=== PATIENT | male | born 1935 | race Caucasian/White ===

== ENCOUNTER 2016-11-08 04:24 | Inpatient (IN) | payer OTHER ==
[~2016-11-08] VITALS: Ht 185.4 cm; Wt 93.4 kg
[2016-11-08] VITALS (8 sets, daily range): BP systolic 90–116; BP diastolic 51–76
[~2016-11-08 04:24] MED LIST: ALDACTONE25 MG PO; CARVEDILOL3.125 M1 PO; CARVEDILOL6.25 M1 PO; CLEOCIN HCL300 MG PO; CLINDAMYCIN HC300 MG PO; COL100 PO; COREG3.125 MG PO; COU1; COU2.5 PO; FLO4 PO; FUROSEMIDE40 MG PO; GLU500 PO; KEF500 PO; LAC PO; LASIX40 MG PO; LEVAQUIN LEVA-750 M1 PO; LEVAQUIN750 MG PO; LEVOFLOXACIN750 M1 PO; LISINOPRIL10 MG PO; OSC PO; XARELTO10 M1 PO; XARELTO20 M1 PO; ZESTRIL5 MG PO
[2016-11-08 05:01] LABS: BASOPHIL % 0.6 % (0-2); PLATELET COUNT 293 x10^3mcL (130-400)
[2016-11-08 05:14] LABS: CALCIUM 8.9 mg/dL (8.5-10.1); CARBON DIOXIDE 34.7 mmol/L (21-32); CHLORIDE SERUM 102 mmol/L (98-107); CREATININE SERUM 0.9 mg/dL (0.7-1.3); GLUCOSE SERUM 139 mg/dL (74-106); SODIUM SERUM 139 mmol/L (136-145)
[2016-11-08 05:20] LABS: ALKALINE PHOSPHATASE 249 U/L (46-116); ALT/SGPT 15 U/L (16-63); AST/SGOT 20 U/L (15-37); BILIRUBIN TOTAL 0.7 mg/dL (0.20-1.00); LIPASE 251 IU/L (73-393); TOTAL PROTEIN, SERUM 7.6 g/dL (6.4-8.2)
[2016-11-08 05:23] LABS: ALBUMIN 2.8 g/dL (3.4-5.0)
[2016-11-08 05:30] LABS: FREE T4 0.98 ng/dL (0.76-1.46)
[2016-11-08 10:16] LABS: T3 TOTAL 1.22 ng/mL
[2016-11-08 10:29] LABS: CHOLESTEROL/HDL RATIO 3.7
[2016-11-08 10:37] LABS: FREE T4 1.09 ng/dL (0.76-1.46); FREE THYROXINE INDEX 2.9 ug/dL (1.4-4.5); T4(THYROXINE) 8.1 ug/dL (4.7-13.3)
[2016-11-09 05:04] VITALS: BP 97/56
[2016-11-09 07:25] LABS: PLATELET COUNT 219 x10^3mcL (130-400)
[2016-11-09 07:32] LABS: BASOPHIL % 0 % (0-2); RED CELL DISTRIBUTION WIDTH 20.1 % (11.5-14.5)
[2016-11-09 07:34] LABS: rbc morphology (normal/abnorm) ABNORMAL (NORMAL)
[2016-11-09 07:36] LABS: CALCIUM 8.7 mg/dL (8.5-10.1); CARBON DIOXIDE 30.2 mmol/L (21-32); CHLORIDE SERUM 101 mmol/L (98-107); CREATININE SERUM 1.3 mg/dL (0.7-1.3); GLUCOSE SERUM 161 mg/dL (74-106); MAGNESIUM 1.9 mg/dL (1.8-2.4); PHOSPHOROUS 3.9 mg/dL (2.5-4.9); POTASSIUM SERUM 4.7 mmol/L (3.5-5.1); SODIUM SERUM 137 mmol/L (136-145)
[2016-11-09 08:57] VITALS: BP 94/46
[2016-11-09 10:00] LABS: UA SPECIFIC GRAVITY >=1.030 (1.005-1.035); microscopic required? YES; urine erythrocyte NEGATIVE (NEGATIVE)
[2016-11-09 10:06] LABS: AMPHETAMINE QUAL UR NONE DETECTED (NEG <=1000)
[2016-11-09 17:36] VITALS: BP 94/53
[2016-11-09 17:51] VITALS: Ht 185.4 cm; Wt 93.4 kg
[2016-11-09 22:10] VITALS: BP 108/48
[2016-11-10 06:20] VITALS: BP 116/50
[2016-11-10 06:27] LABS: CALCIUM 8.9 mg/dL (8.5-10.1); CARBON DIOXIDE 28.1 mmol/L (21-32); CHLORIDE SERUM 98 mmol/L (98-107); CREATININE SERUM 1.2 mg/dL (0.7-1.3); GLUCOSE SERUM 116 mg/dL (74-106); MAGNESIUM 1.9 mg/dL (1.8-2.4); PHOSPHOROUS 3.1 mg/dL (2.5-4.9); SODIUM SERUM 134 mmol/L (136-145)
[2016-11-10 06:29] LABS: PLATELET COUNT 218 x10^3mcL (130-400)
[2016-11-10 06:50] LABS: RED CELL DISTRIBUTION WIDTH 19.9 % (11.5-14.5)
[2016-11-10 06:51] LABS: BASOPHIL % 0 % (0-2); rbc morphology (normal/abnorm) ABNORMAL (NORMAL)
[2016-11-10 10:36] VITALS: BP 106/68
[2016-11-10] MEDS ORDERED: DIG125 PO (11:10)
[2016-11-10] MEDS ORDERED: COR6 PO (11:11)
[2016-11-10] MEDS ORDERED: DILTIAZEM30 M1 PO (11:11)
[2016-11-10] MEDS ORDERED: L40 PO (11:12)
[2016-11-10] MEDS ORDERED: BACO TOP (11:14)
[2016-11-10] MEDS ORDERED: HIBICLENS118 ML TOP (11:14)
[2016-11-10] MEDS ORDERED: CLINDAMYCIN HC300 MG PO (11:45)
[2016-11-10] MEDS ORDERED: LEVAQUIN750 MG PO (11:45)
[2016-11-10] MEDS ORDERED: LAC PO (11:46)
[2016-11-10 13:44] VITALS: BP 119/80
[2016-11-10 14:52] VITALS: BP 119/80
[2016-11-10 15:13] VITALS: BP 120/80
== END 2016-11-10 15:32 | disposition home or self-care (01) | DRG 177 ==
LOC: ED 04:24 → DU 05:36
PROVIDERS: Emergency Medicine; ADMIT Family Medicine
DX: J69.0 Pneumonitis due to inhalation of food and vomit (principal); J96.01 Acute respiratory failure with hypoxia; I50.43 Acute on chronic combined systolic (congestive) and diastolic (congestive) heart failure; N17.0 Acute kidney failure with tubular necrosis; E43 Unspecified severe protein-calorie malnutrition; L97.819 Non-pressure chronic ulcer of other part of right lower leg with unspecified severity; L97.829 Non-pressure chronic ulcer of other part of left lower leg with unspecified severity; E11.65 Type 2 diabetes mellitus with hyperglycemia; E11.51 Type 2 diabetes mellitus with diabetic peripheral angiopathy without gangrene; E11.59 Type 2 diabetes mellitus with other circulatory complications; I48.2 Chronic atrial fibrillation; I83.018 Varicose veins of right lower extremity with ulcer other part of lower leg; I83.028 Varicose veins of left lower extremity with ulcer other part of lower leg; N40.0 Benign prostatic hyperplasia without lower urinary tract symptoms; Z79.01 Long term (current) use of anticoagulants; Z99.81 Dependence on supplemental oxygen; Z79.84 Long term (current) use of oral hypoglycemic drugs
CPT/HCPCS: 36600; 82962; 83880; 84439; 94150; J0456; J0696; J1160; J2543; J2930; J3490; J7050; J7613; J7620; J7644; Q0092

== ENCOUNTER 2016-11-15 15:14 | Observation (INO) | payer OTHER ==
[~2016-11-15] VITALS: Ht 185.4 cm; Wt 96.2 kg
[~2016-11-15 15:14] MED LIST changes: +BACO TOP; +COR6 PO; +DIG125 PO; +DILTIAZEM30 M1 PO; +HIBICLENS118 ML TOP; +L40 PO
[2016-11-15 15:50] LABS: BASOPHIL % 0.1 % (0-2); PLATELET COUNT 254 x10^3mcL (130-400)
[2016-11-15 15:55] LABS: CALCIUM 8.9 mg/dL (8.5-10.1); CHLORIDE SERUM 99 mmol/L (98-107); CREATININE SERUM 0.8 mg/dL (0.7-1.3); GLUCOSE SERUM 107 mg/dL (74-106); POTASSIUM SERUM 4.5 mmol/L (3.5-5.1); SODIUM SERUM 139 mmol/L (136-145)
[2016-11-15 15:59] LABS: RED CELL DISTRIBUTION WIDTH 19.6 % (11.5-14.5)
[2016-11-15 16:01] LABS: ALKALINE PHOSPHATASE 172 U/L (46-116); ALT/SGPT 16 U/L (16-63); AST/SGOT 20 U/L (15-37); BILIRUBIN TOTAL 0.63 mg/dL (0.20-1.00); TOTAL PROTEIN, SERUM 7.1 g/dL (6.4-8.2)
[2016-11-15 16:03] LABS: ALBUMIN 2.5 g/dL (3.4-5.0)
[2016-11-15 17:11] LABS: microscopic required? NO
[2016-11-15 17:18] LABS: UA SPECIFIC GRAVITY 1.025 (1.005-1.035); urine erythrocyte NEGATIVE (NEGATIVE)
[2016-11-15 17:28] LABS: AMPHETAMINE QUAL UR NONE DETECTED (NEG <=1000)
[2016-11-15 17:40] LABS: MAGNESIUM 1.8 mg/dL (1.8-2.4); PHOSPHOROUS 2.5 mg/dL (2.5-4.9)
[2016-11-15 17:47] VITALS: BP 114/58
[2016-11-15 17:54] VITALS: Ht 185.4 cm; Wt 96.2 kg
[2016-11-15 17:55] VITALS: BP 114/58
[2016-11-15 22:20] VITALS: BP 103/50
[2016-11-16 06:12] VITALS: BP 103/50
[2016-11-16 06:37] LABS: CALCIUM 8.6 mg/dL (8.5-10.1); CARBON DIOXIDE 33.4 mmol/L (21-32); CHLORIDE SERUM 99 mmol/L (98-107); GLUCOSE SERUM 162 mg/dL (74-106); MAGNESIUM 1.9 mg/dL (1.8-2.4); PHOSPHOROUS 4.4 mg/dL (2.5-4.9); POTASSIUM SERUM 4.8 mmol/L (3.5-5.1); SODIUM SERUM 137 mmol/L (136-145)
[2016-11-16 07:48] LABS: BASOPHIL % 0 % (0-2); PLATELET COUNT 210 x10^3mcL (130-400); RED CELL DISTRIBUTION WIDTH 19.1 % (11.5-14.5)
[2016-11-16 14:00] VITALS: BP 94/58
[2016-11-16 18:20] VITALS: BP 98/57
[2016-11-16 21:39] VITALS: BP 102/48
[2016-11-16 22:54] VITALS: BP 100/57
[2016-11-17 06:23] LABS: BASOPHIL % 0.2 % (0-2); PLATELET COUNT 228 x10^3mcL (130-400)
[2016-11-17 06:46] LABS: CALCIUM 8.7 mg/dL (8.5-10.1); CARBON DIOXIDE 33.5 mmol/L (21-32); CHLORIDE SERUM 96 mmol/L (98-107); CREATININE SERUM 1.2 mg/dL (0.7-1.3); GLUCOSE SERUM 164 mg/dL (74-106); MAGNESIUM 1.9 mg/dL (1.8-2.4); PHOSPHOROUS 4.1 mg/dL (2.5-4.9); POTASSIUM SERUM 4.4 mmol/L (3.5-5.1); SODIUM SERUM 132 mmol/L (136-145)
[2016-11-17 06:49] LABS: rbc morphology (normal/abnorm) ABNORMAL (NORMAL)
[2016-11-17 06:53] VITALS: BP 105/55
[2016-11-17 10:57] VITALS: BP 99/58
[2016-11-17 13:04] VITALS: BP 102/62
[2016-11-17] MEDS ORDERED: BACTRIM1 TAB PO (18:32)
[2016-11-17 18:33] VITALS: BP 118/67
[2016-11-17] MEDS ORDERED: LEV500PM IV (18:34)
[2016-11-17] MEDS ORDERED: CLINDAMYCI600 MG/50 IV (18:35)
[2016-11-17] MEDS ORDERED: LAC PO (18:36)
[2016-11-17 18:48] VITALS: BP 118/67
[2016-11-17] MEDS ORDERED: MEDDP PO (19:08)
[2016-11-17] MEDS ORDERED: ATORVASTATIN CA20 M1 PO (19:21)
[2016-11-17] MEDS ORDERED: GOOD SENSE ASPI81 M3 PO (19:21)
== END 2016-11-17 20:42 | DRG 291 ==
LOC: ED 15:14 → DU 16:28 → MU 16:28 → DU 16:28 → MU 11-17 13:57
PROVIDERS: Emergency Medicine; ADMIT Family Medicine
DX: I50.43 Acute on chronic combined systolic (congestive) and diastolic (congestive) heart failure (principal); J96.00 Acute respiratory failure, unspecified whether with hypoxia or hypercapnia; N17.0 Acute kidney failure with tubular necrosis; E43 Unspecified severe protein-calorie malnutrition; E87.1 Hypo-osmolality and hyponatremia; B95.62 Methicillin resistant Staphylococcus aureus infection as the cause of diseases classified elsewhere; E11.65 Type 2 diabetes mellitus with hyperglycemia; E11.51 Type 2 diabetes mellitus with diabetic peripheral angiopathy without gangrene; I48.2 Chronic atrial fibrillation; I87.2 Venous insufficiency (chronic) (peripheral); D63.8 Anemia in other chronic diseases classified elsewhere; N40.0 Benign prostatic hyperplasia without lower urinary tract symptoms; Z68.28 Body mass index [BMI] 28.0-28.9, adult; Z99.81 Dependence on supplemental oxygen; Z79.01 Long term (current) use of anticoagulants; Z79.84 Long term (current) use of oral hypoglycemic drugs; Z91.19 Patient's noncompliance with other medical treatment and regimen; Z22.322 Carrier or suspected carrier of Methicillin resistant Staphylococcus aureus
CPT/HCPCS: 36600; 82962; 83880; 94150; 97110-GP; 97530-GP; G0378; J1940; J1956; J2920; J2930; J3490; J7030; J7040; J7613; J7620; J7626; J7644; Q0092

== ENCOUNTER 2016-12-06 23:29 | Inpatient (IN) | payer OTHER ==
[~2016-12-06] VITALS: Ht 177.8 cm; Wt 89.5 kg
[~2016-12-06 23:29] MED LIST changes: +ATORVASTATIN CA20 M1 PO; +BACTRIM1 TAB PO; +CLINDAMYCI600 MG/50 IV; +GOOD SENSE ASPI81 M3 PO; +LEV500PM IV; +MEDDP PO
[2016-12-07] VITALS (8 sets, daily range): BP systolic 103–136; BP diastolic 39–65
[2016-12-07 00:01] LABS: BASOPHIL % 0.4 % (0-2); PLATELET COUNT 184 x10^3mcL (130-400)
[2016-12-07 00:04] LABS: RED CELL DISTRIBUTION WIDTH 20.6 % (11.5-14.5)
[2016-12-07 00:12] LABS: CALCIUM 8.5 mg/dL (8.5-10.1); CARBON DIOXIDE 33.7 mmol/L (21-32); CHLORIDE SERUM 99 mmol/L (98-107); CREATININE SERUM 1.1 mg/dL (0.7-1.3); GLUCOSE SERUM 154 mg/dL (74-106); POTASSIUM SERUM 4.9 mmol/L (3.5-5.1); SODIUM SERUM 135 mmol/L (136-145)
[2016-12-07 00:14] LABS: ALKALINE PHOSPHATASE 168 U/L (46-116); ALT/SGPT 18 U/L (16-63); AST/SGOT 22 U/L (15-37); BILIRUBIN TOTAL 0.5 mg/dL (0.20-1.00); MAGNESIUM 1.5 mg/dL (1.8-2.4); TOTAL PROTEIN, SERUM 6.5 g/dL (6.4-8.2)
[2016-12-07 00:15] LABS: ALBUMIN 2.5 g/dL (3.4-5.0)
[2016-12-07 00:23] LABS: rbc morphology (normal/abnorm) ABNORMAL (NORMAL)
[2016-12-07 00:24] LABS: ovalocyte/elliptocyte 2+; tear drop cell (dacryocyte) 1+
[2016-12-07] MEDS ORDERED: POTASSIUM CHLO10 MEQ PO (00:34)
[2016-12-07 02:23] LABS: PHOSPHOROUS 3.4 mg/dL (2.5-4.9)
[2016-12-07 02:24] LABS: CHOLESTEROL/HDL RATIO 2.2
[2016-12-07 02:33] LABS: FREE T4 1.11 ng/dL (0.76-1.46); FREE THYROXINE INDEX 1.9 ug/dL (1.4-4.5); T4(THYROXINE) 5.4 ug/dL (4.7-13.3)
[2016-12-07 02:44] LABS: T3 TOTAL 0.88 ng/mL
[2016-12-08 03:07] VITALS: BP 99/64
[2016-12-08 05:29] LABS: BASOPHIL % 0.2 % (0-2); PLATELET COUNT 188 x10^3mcL (130-400)
[2016-12-08 05:36] LABS: RED CELL DISTRIBUTION WIDTH 20.6 % (11.5-14.5)
[2016-12-08 05:37] LABS: CALCIUM 8.4 mg/dL (8.5-10.1); CARBON DIOXIDE 33.6 mmol/L (21-32); CHLORIDE SERUM 102 mmol/L (98-107); CREATININE SERUM 0.7 mg/dL (0.7-1.3); GLUCOSE SERUM 90 mg/dL (74-106); MAGNESIUM 1.5 mg/dL (1.8-2.4); PHOSPHOROUS 3.3 mg/dL (2.5-4.9); POTASSIUM SERUM 4.4 mmol/L (3.5-5.1); SODIUM SERUM 138 mmol/L (136-145)
[2016-12-08 06:00] LABS: rbc morphology (normal/abnorm) ABNORMAL (NORMAL)
[2016-12-08 06:01] LABS: ovalocyte/elliptocyte 1+; tear drop cell (dacryocyte) 1+
[2016-12-08 08:00] VITALS: BP 124/92
[2016-12-08 08:13] VITALS: Ht 177.8 cm; Wt 89.5 kg
[2016-12-08 12:10] VITALS: BP 126/59
[2016-12-08 12:47] LABS: microscopic required? YES; urine erythrocyte 3+ (NEGATIVE)
[2016-12-08 16:00] VITALS: BP 128/79
[2016-12-08 19:35] VITALS: BP 125/66
[2016-12-08 23:10] VITALS: BP 104/52
[2016-12-09 04:10] VITALS: BP 131/72
[2016-12-09 05:32] LABS: BASOPHIL % 0.2 % (0-2); PLATELET COUNT 163 x10^3mcL (130-400)
[2016-12-09 05:34] LABS: RED CELL DISTRIBUTION WIDTH 19.9 % (11.5-14.5)
[2016-12-09 05:39] LABS: CALCIUM 8.2 mg/dL (8.5-10.1); CARBON DIOXIDE 33.3 mmol/L (21-32); CHLORIDE SERUM 101 mmol/L (98-107); CREATININE SERUM 0.6 mg/dL (0.7-1.3); GLUCOSE SERUM 80 mg/dL (74-106); MAGNESIUM 1.9 mg/dL (1.8-2.4); POTASSIUM SERUM 4.3 mmol/L (3.5-5.1); SODIUM SERUM 137 mmol/L (136-145)
[2016-12-09 08:00] VITALS: BP 137/78
[2016-12-09 12:55] VITALS: BP 140/57
[2016-12-09 15:27] VITALS: BP 120/56
[2016-12-09 16:50] VITALS: BP 134/62
[2016-12-09 22:15] VITALS: BP 117/79
[2016-12-10 05:59] LABS: BASOPHIL % 0.3 % (0-2); PLATELET COUNT 159 x10^3mcL (130-400)
[2016-12-10 06:04] VITALS: BP 121/59
[2016-12-10 06:26] LABS: CALCIUM 8.1 mg/dL (8.5-10.1); CARBON DIOXIDE 30.1 mmol/L (21-32); CHLORIDE SERUM 101 mmol/L (98-107); CREATININE SERUM 0.6 mg/dL (0.7-1.3); GLUCOSE SERUM 91 mg/dL (74-106); MAGNESIUM 1.7 mg/dL (1.8-2.4); POTASSIUM SERUM 4.4 mmol/L (3.5-5.1); SODIUM SERUM 136 mmol/L (136-145)
[2016-12-10 06:37] LABS: RED CELL DISTRIBUTION WIDTH 20.5 % (11.5-14.5)
[2016-12-10 06:38] LABS: ovalocyte/elliptocyte 1+; rbc morphology (normal/abnorm) ABNORMAL (NORMAL); tear drop cell (dacryocyte) 1+
[2016-12-10 10:14] VITALS: BP 123/65
[2016-12-10] MEDS ORDERED: DILTIAZEM30 M1 PO (10:17)
[2016-12-10] MEDS ORDERED: XARELTO20 M1 PO (10:18)
[2016-12-10] MEDS ORDERED: BG FS (10:19)
[2016-12-10] MEDS ORDERED: VITC PO (10:19)
[2016-12-10] MEDS ORDERED: GOOD SENSE ASPI81 M3 PO (10:26)
[2016-12-10] MEDS ORDERED: NOVAPLUS V0.09 MG/Ac IH (10:39)
[2016-12-10] MEDS ORDERED: PULMICORT180 MCG/Ac INH (10:39)
[2016-12-10] MEDS ORDERED: DIG125 PO (10:42)
[2016-12-10] MEDS ORDERED: L40 PO (10:42)
[2016-12-10] MEDS ORDERED: GLU500 PO (10:42)
[2016-12-10] MEDS ORDERED: COR6 PO (10:42)
[2016-12-10] MEDS ORDERED: LIPI20 PO (10:42)
[2016-12-10 13:25] VITALS: BP 123/65
[2016-12-10 14:00] VITALS: BP 119/81
[2016-12-10] MEDS ORDERED: LAC PO (15:12)
[2016-12-10] MEDS ORDERED: BACTRIM DS1 TAB PO (15:12)
== END 2016-12-10 15:36 | disposition home or self-care (01) | DRG 242 ==
LOC: ED 23:29 → IC 12-07 00:44 → DU 12-09 16:39
PROVIDERS: Emergency Medicine; Internal Medicine Cardiovascular Disease; ADMIT Family Medicine
PROC: 05HM33Z Insertion of Infusion Device into Right Internal Jugular Vein, Percutaneous Approach (ICD-10-PCS; 2016-12-07)
PROC: B543ZZA Ultrasonography of Right Jugular Veins, Guidance (ICD-10-PCS; 2016-12-07)
PROC: 0JH604Z Insertion of Pacemaker, Single Chamber into Chest Subcutaneous Tissue and Fascia, Open Approach (ICD-10-PCS; principal; 2016-12-09 09:30)
PROC: 02HK3JZ Insertion of Pacemaker Lead into Right Ventricle, Percutaneous Approach (ICD-10-PCS; principal; 2016-12-09 09:30)
DX: I50.43 Acute on chronic combined systolic (congestive) and diastolic (congestive) heart failure (principal); J96.00 Acute respiratory failure, unspecified whether with hypoxia or hypercapnia; N17.0 Acute kidney failure with tubular necrosis; E43 Unspecified severe protein-calorie malnutrition; E11.51 Type 2 diabetes mellitus with diabetic peripheral angiopathy without gangrene; R00.1 Bradycardia, unspecified; E83.42 Hypomagnesemia; I27.2 Other secondary pulmonary hypertension; I48.2 Chronic atrial fibrillation; I25.10 Atherosclerotic heart disease of native coronary artery without angina pectoris; N40.0 Benign prostatic hyperplasia without lower urinary tract symptoms; D63.8 Anemia in other chronic diseases classified elsewhere; Z68.27 Body mass index [BMI] 27.0-27.9, adult; Z99.81 Dependence on supplemental oxygen; Z79.01 Long term (current) use of anticoagulants
CPT/HCPCS: 33207; 36556; 36600; 82962; 83880; 84439; 94150; C1786; J0690; J1265; J1642; J1644; J1815; J2001; J2060; J2250; J3010; J3370; J3475; J3490; J7030; J7040; J7050; J7620; J7633; Q0092; Q0163; Q9967

== ENCOUNTER 2017-01-03 10:14 | Emergency (ER) | payer OTHER ==
[~2017-01-03 10:14] MED LIST changes: +BACTRIM DS1 TAB PO; +BG FS; +LIPI20 PO; +NOVAPLUS V0.09 MG/Ac IH; +POTASSIUM CHLO10 MEQ PO; +PULMICORT180 MCG/Ac INH; +VITC PO
[2017-01-03 11:20] LABS: CALCIUM 8.5 mg/dL (8.5-10.1); CARBON DIOXIDE 35.8 mmol/L (21-32); CHLORIDE SERUM 97 mmol/L (98-107); CREATININE SERUM 0.9 mg/dL (0.7-1.3); GLUCOSE SERUM 173 mg/dL (74-106); SODIUM SERUM 138 mmol/L (136-145)
[2017-01-03 11:22] LABS: BASOPHIL % 0.2 % (0-2); PLATELET COUNT 274 x10^3mcL (130-400)
[2017-01-03 11:31] LABS: ALKALINE PHOSPHATASE 152 U/L (46-116); ALT/SGPT 14 U/L (16-63); AST/SGOT 19 U/L (15-37); BILIRUBIN TOTAL 0.7 mg/dL (0.20-1.00); C REACTIVE PROTEIN 2.6 mg/dL (<=0.9)
[2017-01-03 11:33] LABS: RED CELL DISTRIBUTION WIDTH 21.5 % (11.5-14.5)
[2017-01-03 11:35] LABS: FREE T4 1.19 ng/dL (0.76-1.46); FREE THYROXINE INDEX 2.2 ug/dL (1.4-4.5); T4(THYROXINE) 6.6 ug/dL (4.7-13.3)
[2017-01-03 11:37] LABS: rbc morphology (normal/abnorm) ABNORMAL (NORMAL)
[2017-01-03 11:38] LABS: ALBUMIN 2.7 g/dL (3.4-5.0); CK-MB 1.1 ng/mL (0-3.6); ovalocyte/elliptocyte 1+
[2017-01-03 11:41] LABS: microscopic required? YES; urine erythrocyte TRACE (NEGATIVE)
[2017-01-03 11:41] LABS: T3 TOTAL 0.85 ng/mL
[2017-01-03 12:57] LABS: ERYTHROCYTE SED RATE 48 mm/hr (0-20)
[2017-01-03 13:58] VITALS: BP 121/75
== END 2017-01-03 13:58 | disposition home or self-care (01) ==
LOC: ED 10:14
PROVIDERS: Specialist
DX: I11.0 Hypertensive heart disease with heart failure (principal); I50.22 Chronic systolic (congestive) heart failure; J45.901 Unspecified asthma with (acute) exacerbation; E11.9 Type 2 diabetes mellitus without complications
CPT/HCPCS: 36600; 83880; 84439; J2930; J7613; J7644; Q0092

== ENCOUNTER 2017-02-19 11:01 | Inpatient (IN) | payer OTHER ==
[2017-02-19] VITALS (12 sets, daily range): BP systolic 66–133; BP diastolic 45–86
[~2017-02-19] VITALS: Ht 180.3 cm; Wt 99.0 kg
[2017-02-19 11:50] LABS: PLATELET COUNT 349 x10^3mcL (130-400); RED CELL DISTRIBUTION WIDTH 17.8 % (11.5-14.5)
[2017-02-19 11:51] LABS: BASOPHIL % 0 % (0-2)
[2017-02-19 11:55] LABS: CALCIUM 8.4 mg/dL (8.5-10.1); CARBON DIOXIDE 35.1 mmol/L (21-32); CHLORIDE SERUM 97 mmol/L (98-107); CREATININE SERUM 1.3 mg/dL (0.7-1.3); GLUCOSE SERUM 108 mg/dL (74-106); SODIUM SERUM 134 mmol/L (136-145)
[2017-02-19 11:59] LABS: ALKALINE PHOSPHATASE 150 U/L (46-116); ALT/SGPT 12 U/L (16-63); AST/SGOT 19 U/L (15-37); TOTAL PROTEIN, SERUM 7.4 g/dL (6.4-8.2)
[2017-02-19 12:04] LABS: ALBUMIN 2.1 g/dL (3.4-5.0)
[2017-02-19 12:35] LABS: microscopic required? YES; urine erythrocyte 2+ (NEGATIVE)
[2017-02-19 14:05] LABS: MAGNESIUM 1.5 mg/dL (1.8-2.4); PHOSPHOROUS 3.6 mg/dL (2.5-4.9)
[2017-02-19 14:10] LABS: CHOLESTEROL/HDL RATIO 3.3
[2017-02-19 14:11] LABS: T3 TOTAL 0.47 ng/mL
[2017-02-19 14:12] LABS: FREE T4 1.32 ng/dL (0.76-1.46); FREE THYROXINE INDEX 2.7 ug/dL (1.4-4.5)
[2017-02-19 14:18] LABS: AMPHETAMINE QUAL UR NONE DETECTED (NEG <=1000)
[2017-02-19 15:14] LABS: IRON 11 ug/dL (65-170); TOTAL IRON BINDING CAPACITY 195 ug/dL (250-450)
[2017-02-19 15:33] LABS: RED BLOOD CELLS 3.51 M/mm3 (4.52-5.90)
[2017-02-20] VITALS (16 sets, daily range): BP systolic 74–108; BP diastolic 43–70
[2017-02-20 05:48] LABS: PLATELET COUNT 359 x10^3mcL (130-400)
[2017-02-20 05:54] LABS: RED CELL DISTRIBUTION WIDTH 17.7 % (11.5-14.5)
[2017-02-20 06:07] LABS: BAND NEUTROPHIL 10 % (0-10); METAMYELOCTE 6 % (0-2); MONOCYTE 4 % (0-7); SEGMENTED NEUTROPHILS 78 % (37-75)
[2017-02-20 06:10] LABS: ovalocyte/elliptocyte 1+; rbc morphology (normal/abnorm) ABNORMAL (NORMAL); tear drop cell (dacryocyte) 1+
[2017-02-20 06:11] LABS: PLATELET MORPHOLOGY FEW LARGE PLATELETS
[2017-02-20 06:26] LABS: CALCIUM 7.8 mg/dL (8.5-10.1); CARBON DIOXIDE 29.5 mmol/L (21-32); CHLORIDE SERUM 98 mmol/L (98-107); CREATININE SERUM 1.6 mg/dL (0.7-1.3); GLUCOSE SERUM 103 mg/dL (74-106); MAGNESIUM 2.3 mg/dL (1.8-2.4); POTASSIUM SERUM 3.9 mmol/L (3.5-5.1); SODIUM SERUM 135 mmol/L (136-145)
[2017-02-20] MEDS ORDERED: CARDIZEM30 MG PO (14:05)
[2017-02-20 22:42] LABS: BASOPHIL % 0.3 % (0-2); PLATELET COUNT 311 x10^3mcL (130-400)
[2017-02-20 22:46] LABS: RED CELL DISTRIBUTION WIDTH 17.8 % (11.5-14.5)
[2017-02-21] VITALS (18 sets, daily range): BP systolic 75–165; BP diastolic 25–114
[2017-02-21 05:49] LABS: BASOPHIL % 0.2 % (0-2); PLATELET COUNT 268 x10^3mcL (130-400)
[2017-02-21 05:50] LABS: RED CELL DISTRIBUTION WIDTH 17.8 % (11.5-14.5)
[2017-02-21 08:10] LABS: CALCIUM 7.7 mg/dL (8.5-10.1); CARBON DIOXIDE 25.8 mmol/L (21-32); CHLORIDE SERUM 99 mmol/L (98-107); CREATININE SERUM 2.2 mg/dL (0.7-1.3); GLUCOSE SERUM 81 mg/dL (74-106); MAGNESIUM 2.2 mg/dL (1.8-2.4); POTASSIUM SERUM 4.2 mmol/L (3.5-5.1); SODIUM SERUM 135 mmol/L (136-145)
[2017-02-21 18:08] LABS: SOURCE FLUID ASCITES
[2017-02-21 18:09] LABS: APPEARANCE FLUID CLEAR; COLOR FLUID PALE YELLOW; RBC FLUID 54.4 /cumm; WBC FLUID 3.33 /cumm
[2017-02-22] VITALS (16 sets, daily range): BP systolic 82–109; BP diastolic 39–79
[2017-02-22 05:28] LABS: PLATELET COUNT 221 x10^3mcL (130-400)
[2017-02-22 05:48] LABS: CALCIUM 7.7 mg/dL (8.5-10.1); CARBON DIOXIDE 28.7 mmol/L (21-32); CHLORIDE SERUM 99 mmol/L (98-107); CREATININE SERUM 2.3 mg/dL (0.7-1.3); GLUCOSE SERUM 74 mg/dL (74-106); PHOSPHOROUS 4.2 mg/dL (2.5-4.9); POTASSIUM SERUM 4.2 mmol/L (3.5-5.1); SODIUM SERUM 132 mmol/L (136-145)
[2017-02-22 05:51] LABS: BAND NEUTROPHIL 11 % (0-10); BASOPHIL 0 % (0-2); MONOCYTE 9 % (0-7); SEGMENTED NEUTROPHILS 69 % (37-75); rbc morphology (normal/abnorm) ABNORMAL (NORMAL)
[2017-02-22 05:52] LABS: PLATELET MORPHOLOGY PLATELETS NORMAL; target cell (codocyte) 3+
[2017-02-23] VITALS (17 sets, daily range): BP systolic 80–106; BP diastolic 41–60
[2017-02-23 05:29] LABS: BASOPHIL % 0.3 % (0-2); PLATELET COUNT 158 x10^3mcL (130-400)
[2017-02-23 05:32] LABS: RED CELL DISTRIBUTION WIDTH 18.3 % (11.5-14.5)
[2017-02-23 06:14] LABS: ALBUMIN 1.8 g/dL (3.4-5.0); ALKALINE PHOSPHATASE 110 U/L (46-116); ALT/SGPT 171 U/L (16-63); AST/SGOT 258 U/L (15-37); BILIRUBIN TOTAL 1.85 mg/dL (0.20-1.00); CALCIUM 7.8 mg/dL (8.5-10.1); CARBON DIOXIDE 30.8 mmol/L (21-32); CHLORIDE SERUM 98 mmol/L (98-107); GLUCOSE SERUM 82 mg/dL (74-106); POTASSIUM SERUM 3.9 mmol/L (3.5-5.1); SODIUM SERUM 134 mmol/L (136-145); TOTAL PROTEIN, SERUM 5.1 g/dL (6.4-8.2)
[2017-02-24] VITALS (17 sets, daily range): BP systolic 9–140; BP diastolic 39–83
[2017-02-24 05:44] LABS: CALCIUM 7.5 mg/dL (8.5-10.1); CARBON DIOXIDE 30.5 mmol/L (21-32); CHLORIDE SERUM 99 mmol/L (98-107); CREATININE SERUM 1.7 mg/dL (0.7-1.3); GLUCOSE SERUM 91 mg/dL (74-106); POTASSIUM SERUM 3.8 mmol/L (3.5-5.1); SODIUM SERUM 134 mmol/L (136-145)
[2017-02-24 05:50] LABS: BASOPHIL % 0.1 % (0-2); PLATELET COUNT 154 x10^3mcL (130-400)
[2017-02-24 05:51] LABS: RED CELL DISTRIBUTION WIDTH 18.4 % (11.5-14.5)
[2017-02-25] VITALS (17 sets, daily range): BP systolic 86–124; BP diastolic 40–66
[2017-02-25 05:38] LABS: PLATELET COUNT 172 x10^3mcL (130-400)
[2017-02-25 05:46] LABS: BASOPHIL % 0 % (0-2); RED CELL DISTRIBUTION WIDTH 18.3 % (11.5-14.5)
[2017-02-25 05:53] LABS: ALKALINE PHOSPHATASE 200 U/L (46-116); ALT/SGPT 84 U/L (16-63); AST/SGOT 100 U/L (15-37); BILIRUBIN DIRECT 2.65 mg/dL (0.0-0.2); BILIRUBIN TOTAL 3.1 mg/dL (0.20-1.00); CALCIUM 7.6 mg/dL (8.5-10.1); CARBON DIOXIDE 30.7 mmol/L (21-32); CHLORIDE SERUM 100 mmol/L (98-107); CREATININE SERUM 1.4 mg/dL (0.7-1.3); GLUCOSE SERUM 100 mg/dL (74-106); POTASSIUM SERUM 3.3 mmol/L (3.5-5.1); SODIUM SERUM 136 mmol/L (136-145)
[2017-02-25 06:00] LABS: ALBUMIN 1.5 g/dL (3.4-5.0)
[2017-02-26] VITALS (16 sets, daily range): BP systolic 96–138; BP diastolic 50–86; Ht 180.3 cm; Wt 99.0 kg
[2017-02-26 05:02] LABS: BASOPHIL % 0.1 % (0-2); PLATELET COUNT 151 x10^3mcL (130-400)
[2017-02-26 05:08] LABS: CALCIUM 7.5 mg/dL (8.5-10.1); CARBON DIOXIDE 32.3 mmol/L (21-32); CHLORIDE SERUM 100 mmol/L (98-107); CREATININE SERUM 1.5 mg/dL (0.7-1.3); GLUCOSE SERUM 97 mg/dL (74-106); POTASSIUM SERUM 3.3 mmol/L (3.5-5.1); SODIUM SERUM 135 mmol/L (136-145)
[2017-02-26 05:14] LABS: RED CELL DISTRIBUTION WIDTH 18.4 % (11.5-14.5)
[2017-02-27] VITALS (13 sets, daily range): BP systolic 94–134; BP diastolic 45–74
[2017-02-27 05:43] LABS: BASOPHIL % 0.3 % (0-2); PLATELET COUNT 164 x10^3mcL (130-400)
[2017-02-27 05:45] LABS: RED CELL DISTRIBUTION WIDTH 18.8 % (11.5-14.5)
[2017-02-27 05:54] LABS: CALCIUM 7.3 mg/dL (8.5-10.1); CARBON DIOXIDE 30.5 mmol/L (21-32); CHLORIDE SERUM 100 mmol/L (98-107); CREATININE SERUM 1.4 mg/dL (0.7-1.3); GLUCOSE SERUM 112 mg/dL (74-106); POTASSIUM SERUM 3.2 mmol/L (3.5-5.1); SODIUM SERUM 137 mmol/L (136-145)
[2017-02-28 03:54] VITALS: BP 137/66
[2017-02-28 04:55] LABS: PLATELET COUNT 197 x10^3mcL (130-400)
[2017-02-28 04:58] LABS: BASOPHIL % 0 % (0-2); RED CELL DISTRIBUTION WIDTH 18.9 % (11.5-14.5)
[2017-02-28 05:25] LABS: CALCIUM 7.6 mg/dL (8.5-10.1); CARBON DIOXIDE 30.7 mmol/L (21-32); CHLORIDE SERUM 100 mmol/L (98-107); CREATININE SERUM 1.3 mg/dL (0.7-1.3); GLUCOSE SERUM 100 mg/dL (74-106); POTASSIUM SERUM 3.1 mmol/L (3.5-5.1); SODIUM SERUM 134 mmol/L (136-145)
[2017-02-28 08:18] VITALS: BP 139/69
[2017-02-28 12:00] VITALS: BP 125/59
[2017-02-28 16:52] VITALS: BP 111/57
[2017-02-28 19:30] VITALS: BP 130/68
[2017-03-01 00:36] VITALS: BP 105/54
[2017-03-01 04:00] VITALS: BP 108/55
[2017-03-01 05:52] LABS: PLATELET COUNT 198 x10^3mcL (130-400)
[2017-03-01 05:53] LABS: BASOPHIL % 0 % (0-2); RED CELL DISTRIBUTION WIDTH 19.4 % (11.5-14.5)
[2017-03-01 05:55] LABS: CALCIUM 7.7 mg/dL (8.5-10.1); CARBON DIOXIDE 29.8 mmol/L (21-32); CHLORIDE SERUM 103 mmol/L (98-107); CREATININE SERUM 1.2 mg/dL (0.7-1.3); GLUCOSE SERUM 108 mg/dL (74-106); POTASSIUM SERUM 3.7 mmol/L (3.5-5.1); SODIUM SERUM 140 mmol/L (136-145)
[2017-03-01 07:41] VITALS: BP 122/46
[2017-03-01 12:51] VITALS: BP 136/77
[2017-03-01 14:34] VITALS: BP 118/77
[2017-03-01] MEDS ORDERED: IPRATROPIUM BROM3 M2 HHN ×2 (15:18)
[2017-03-01] MEDS ORDERED: HUMULIN R100 U/1 M1 SC (15:18)
[2017-03-01] MEDS ORDERED: TYL325 PO (15:18)
[2017-03-01] MEDS ORDERED: PULMICORT0.25 MG/2 IH (15:18)
[2017-03-01] MEDS ORDERED: LEVOFLOXACIN750 M1 PO (15:18)
[2017-03-01] MEDS ORDERED: ELIQUIS2.5 MG PO (15:18)
[2017-03-01] MEDS ORDERED: COR3 PO (15:18)
[2017-03-01] MEDS ORDERED: LAC PO (15:18)
[2017-03-01] MEDS ORDERED: COL100UDC PO (15:18)
== END 2017-03-02 02:54 | disposition expired | DRG 870 ==
LOC: ED 11:01 → DU 12:47 → IC 12:47 → UNDODEPER 13:21 → IC 13:31
PROVIDERS: Emergency Medicine; Family Medicine; Internal Medicine Cardiovascular Disease; ADMIT Family Medicine
PROC: 5A1955Z Respiratory Ventilation, Greater than 96 Consecutive Hours (ICD-10-PCS; principal; 2017-02-19)
PROC: 0BH17EZ Insertion of Endotracheal Airway into Trachea, Via Natural or Artificial Opening (ICD-10-PCS; 2017-02-19)
PROC: 0W9G3ZZ Drainage of Peritoneal Cavity, Percutaneous Approach (ICD-10-PCS; 2017-02-19)
PROC: 05HN33Z Insertion of Infusion Device into Left Internal Jugular Vein, Percutaneous Approach (ICD-10-PCS; 2017-02-19)
PROC: B544ZZA Ultrasonography of Left Jugular Veins, Guidance (ICD-10-PCS; 2017-02-19)
PROC: 0W9G3ZZ Drainage of Peritoneal Cavity, Percutaneous Approach (ICD-10-PCS; 2017-02-21)
DX: A41.9 Sepsis, unspecified organism (principal); J96.01 Acute respiratory failure with hypoxia; J96.02 Acute respiratory failure with hypercapnia; I50.43 Acute on chronic combined systolic (congestive) and diastolic (congestive) heart failure; J69.0 Pneumonitis due to inhalation of food and vomit; G93.41 Metabolic encephalopathy; E43 Unspecified severe protein-calorie malnutrition; N17.0 Acute kidney failure with tubular necrosis; R65.21 Severe sepsis with septic shock; R18.8 Other ascites; I42.9 Cardiomyopathy, unspecified; E87.1 Hypo-osmolality and hyponatremia; D68.69 Other thrombophilia; E11.51 Type 2 diabetes mellitus with diabetic peripheral angiopathy without gangrene; E11.65 Type 2 diabetes mellitus with hyperglycemia; I48.2 Chronic atrial fibrillation; E87.6 Hypokalemia; R31.9 Hematuria, unspecified; I34.0 Nonrheumatic mitral (valve) insufficiency; D63.8 Anemia in other chronic diseases classified elsewhere; E78.5 Hyperlipidemia, unspecified; Z79.01 Long term (current) use of anticoagulants; Z66 Do not resuscitate; Z51.5 Encounter for palliative care; Z95.0 Presence of cardiac pacemaker; Z68.35 Body mass index [BMI] 35.0-35.9, adult; Z22.322 Carrier or suspected carrier of Methicillin resistant Staphylococcus aureus
CPT/HCPCS: 31500; 36556; 36600; 82962; 83880; 84439; 94150; 97110-GP; A4628; J0282; J0330; J0696; J1160; J1170; J1642; J1644; J1940; J1956; J2060; J2250; J2270; J2370; J2704; J3010; J3475; J3480; J3490; J7030; J7040; J7042; J7050; J7620; J7633; P9016; P9047; Q0092